=== PATIENT | female | born 1980 | race Caucasian/White ===

== ENCOUNTER 2019-05-18 19:52 | Inpatient (IN) ==
--- NOTE | 2019-05-18 20:22 | Labor Progress Brief Note ---
Date of Service May 18, 2019 Subjective Patient arrived to L&D after calling O/C with c/o copious clear LOF at home. She denied ctx, VB on the phone and had good FM. She continues to have no ctx, no VB and good FM here on L&D. Review of Systems All systems reviewed & are unremarkable except as noted in HPI & below Assessment & Plan (1) Insulin dependent gestational diabetes mellitus (GDM), antepartum: Patient last checked sugar earlier today at home, can't remember value. I note per records she has been poorly compliant with recommendations for having endocrine/dietary monitor her sugars and adjust her insulin, and has been declining much of the recommended testing. We discussed that in labor it is important to have maternal glucose under tight control and the patient and FOB are in agreement with following our antepartum insulin protocol. Present on Admission?: Yes (2) PROM (premature rupture of membranes): Patient with gross rupture for clear nitrazine-positive fluid. Exam of cervix is 3/50/-2 with palpable vertex. Explained to patient that without painful contractions, I would recommend beginning pitocin. After questions were answered for her and FOB, including that ACOG is the source of the recommendation to discourage expectant management once membranes are ruptured, they are in agreement with this. The patient states she had "major complications" with her second baby's epidural, and therefore went unmedicated with the third child, and expects to do so again with this delivery. I asked for more information and she states she had a dural puncture, spinal headache, and "they put air in my spine" during placement of blood patch. We discussed that I do not recommend IV pain medication due to the potential of infant respiratory depression, but that if she changes her mind about epidural she is welcome to request one; otherwise we will certainly support her through an unmedicated per her preference. PROM onset of labor timing: unspecified duration between rupture of membranes and onset of labor PROM gestational age: full term Qualified Code(s): O42.92 - Full-term premature rupture of membranes, unspecified as to length of time between rupture and onset of labor Present on Admission?: Yes Physical Exam Constitutional: WD/WN, vitals as above Eyes: PERRL, conjunctivae normal, anicteric sclerae ENMT: external ear and nose normal, oropharynx normal Neck: supple Respiratory: normal respiratory effort and able to speak in complete sentences; no respiratory distress Cardiovascular: Rate/Rhythm: regular rate and regular rhythm Gastrointestinal (Abdomen): Gravid / AGA, nontender Musculoskeletal: no cyanosis or clubbing, extremities motor strength 5/5 Skin: no rashes, warm and dry Psychiatric: A+Ox3, euthymic affect Genitourinary: Speculum/Bimanual Exam: no vaginal lesions, no vaginal bleeding and uterus nontender OB Exam Abdomen: + vertex and + estimated weight (7) Manual OB Exam: + cervical dilation 3 cm, + cervical effacement 50%, + station -2 and + amniotic fluid clear and nitrazine positive OB Exam Monitor Tracing: + external FHT monitor used, + external uterine monitor used (Q4m) and + category I Results & Data Vital Signs (Past 12 Hours) Vital Signs Pulse BP 05/18/19 20:01 91 H 129/71
[2019-05-18] MEDS ORDERED: SODIUM CHLORIDE 0.9% 1000ML 1,000 ML IV PRN (20:23)
[2019-05-18] MEDS ORDERED: OXYTOCIN 30 UNITS/500 ML BAG IV PRN ×2 (20:23)
[2019-05-18] MEDS ORDERED: INSULIN REGULAR 250 UNITS in SODIUM CHLORIDE 0.9% 247.5 ML IV PRN (20:23)
[2019-05-18] MEDS ORDERED: DEXTROSE 50% 50 ML SYRINGE IV PRN (20:23)
[2019-05-18] MEDS ORDERED: LACTATED RINGER'S 1,000 ML IV PRN (20:23)
[2019-05-18] MEDS ORDERED: DEXTROSE 5% 1,000 ML IV SCH (20:30)
[2019-05-18 21:14] LABS: Hematocrit (blood only) 34.7 % (37-47); Hemoglobin 11.7 g/dL (12.0-16.0); Mean Corpuscular Hemoglobin 31.5 pg (25-34); Mean Corpuscular Volume 93.5 fL (80-100); Mean Platelet Volume 11.3 fL (7.4-10.4); Platelet Count 253 K/uL (130-400); RDW Coefficient of Variation 14.3 % (11.5-14.5); RDW Standard Deviation 48.9 fL (36.4-46.3); Red Blood Count 3.71 M/uL (4.2-5.4); White Blood Count 7.99 K/uL (4.8-10.8)
[2019-05-18 21:20] LABS: Mean Corpuscular Hgb Conc 33.7 g/dL (32-36)
[2019-05-19] MEDS ORDERED: IBUPROFEN 600 MG TAB PO ONE (00:50)
--- NOTE | 2019-05-19 00:52 | Delivery Summary ---
Vaginal Delivery Summary Date of Service May 19, 2019 Vaginal Delivery Summary DIAGNOSES: 1. [place] intrauterine at 38w2d gestation. 2. PROM/IOL. 3. Group B Streptococcus Neg. 4. AMA 5. A2GDM 6. Rh Negative PROCEDURE: Spontaneous vaginal delivery. SURGEON: Gypsy Jacobson MD. CHARGE ENTRY CLERK: None. ESTIMATED BLOOD LOSS: 250 mL. COMPLICATIONS: None. PLACENTA: Spontaneous and intact with a 3-vessel cord. DISPOSITION: Stable to labor and delivery. DESCRIPTION: The patient pushed well and brought the head to in OA position. The infant's head was allowed to deliver with contraction force and no further active pushing, with the perineum protected during this time. There was a tight nuchal cord x1 that was reduced with some difficulty over the infant's head. The shoulders delivered with the next maternal pushing effort. The right shoulder was anterior. The body delivered without any difficulty, and the infant was placed on the maternal abdomen. It was vigorous and moving all extremities, and making respiratory efforts. The cord was doubly clamped by the MD and then cut by the FOB. The placenta delivered spontaneously and was noted to be intact and with a 3VC. The cervix, vagina and perineum were examined and were found to be without defect requiring repair. The fundus was firm and lochia minimal immediately after delivery.
[2019-05-19] MEDS ORDERED: BISACODYL 10 MG SUPP PR PRN (03:02)
[2019-05-19] MEDS ORDERED: LACTATED RINGER'S 1,000 ML IV SCH (03:02)
[2019-05-19] MEDS ORDERED: ACETAMINOPHEN 325 MG TAB PO PRN (03:02)
[2019-05-19] MEDS ORDERED: OXYCODONE/ACETAMINOPHEN 5mg/325mg TAB PO PRN (03:02)
[2019-05-19] MEDS ORDERED: SUPERCREAM 0.870% 15 GM JAR EXT PRN (03:02)
[2019-05-19] MEDS ORDERED: OXYTOCIN 30 UNITS/500 ML BAG IV PRN (03:02)
[2019-05-19] MEDS ORDERED: HYDROCORTISONE ACETATE 25 MG SUPP PR PRN (03:02)
[2019-05-19] MEDS ORDERED: BENZOCAINE 20% AER SPR 82.5 GM CAN EXT PRN (03:02)
[2019-05-19] MEDS: IBUPROFEN 600 MG TAB PO PRN ×2 (06:22→15:00)
[2019-05-19] MEDS: DOCUSATE SODIUM 100 MG CAP PO SCH ×2 (15:04→20:56)
[2019-05-19] MEDS: PRENATAL VITAMIN 1 TAB PO SCH (15:04)
[2019-05-20] MEDS: IBUPROFEN 600 MG TAB PO PRN ×2 (00:07→08:12)
[2019-05-20 06:41] LABS: Hematocrit (blood only) 33.3 % (37-47); Mean Corpuscular Hemoglobin 31.3 pg (25-34); Mean Corpuscular Volume 94.9 fL (80-100); Mean Platelet Volume 11.2 fL (7.4-10.4); Platelet Count 231 K/uL (130-400); RDW Coefficient of Variation 14.4 % (11.5-14.5); RDW Standard Deviation 49.7 fL (36.4-46.3); Red Blood Count 3.51 M/uL (4.2-5.4); White Blood Count 9.71 K/uL (4.8-10.8)
--- NOTE | 2019-05-20 06:52 | Obstetrical Progress Note ---
Date of Service <Lalo Vance MD - Last Filed: 05/20/19 06:55> May 20, 2019 Assessment & Plan <Lalo Vance MD - Last Filed: 05/20/19 06:55> (1) : 05/19 PPD#1 feels well, ambulating well, voiding well After discharge will have 6 week follow-up Subjective <Lalo Vance MD - Last Filed: 05/20/19 06:55> Ms Medina is a 39 y/o female ; PPD #1 following spontaneous vaginal delivery at 38+ weeks; doing well this morning; having no abdominal cramping/pain; voiding well, passing gas but no bowel movements at this point; tolerating meals overnight; and able to ambulate some; some persistent spotting with intermittent improvement this morning. Review of Systems Constitutional: denies fever; chills; sweats; headache Respiratory: denies shortness of breath, difficulty breathing Cardiac: denies chest pain; palpitations; chest pressure Breast: denies breast pain : denies dysuria Physical Exam <Lalo Vance MD - Last Filed: 05/20/19 06:55> General: alert; oriented; no acute distress Cardiac: RRR; no m/g/r Respiratory: CTAB a/p; no wheezes/rales/rhonchi; no increased work of breathing; symmetrical chest rise; no respiratory distress Abdomen: soft; NT/ND; bowel sounds positive Uterus: uterine fundus firm; palpable 2cm below umbilicus Lower extrem: no lower extremity edema or swelling; no deep calf pain; Rivka's sign negative b/l Results & Data <Lalo Vance MD - Last Filed: 05/20/19 06:55> Vital Signs (Past 12 Hours) Vital Signs Temp Pulse Resp BP Pulse Ox 05/19/19 23:50 37 C 80 16 114/75 98 05/19/19 19:30 36.8 C 80 18 113/69 98 Laboratory Results 05/20/19 05/19/19 Range/Units 06:17 06:15 WBC 9.71 (4.8-10.8) K/uL RBC 3.51 L (4.2-5.4) M/uL Hgb 11.0 L (12.0-16.0) g/dL Hct 33.3 L (37-47) % MCV 94.9 (80-100) fL MCH 31.3 (25-34) pg MCHC 33.0 (32-36) g/dL RDW Std Deviation 49.7 H (36.4-46.3) fL RDW Coeff of Stephan 14.4 (11.5-14.5) % Plt Count 231 (130-400) K/uL MPV 11.2 H (7.4-10.4) fL Blood Type Cancelled Antibody Screen Cancelled Screen Cancelled Medications Administered Current Inpatient Medications Acetaminophen (Tylenol) 650 mg PO Q6H PRN PRN Reason: Pain/LIM/Fever Stop: 06/18/19 03:01 Benzocaine (Dermoplast Pain Relieving [place]) 1 appln EXT PRN PRN PRN Reason: Perineal Discomfort Stop: 06/18/19 03:01 Bisacodyl (Dulcolax) 5 mg PO 2000 [facility] Stop: 05/20/19 20:01 Bisacodyl (Dulcolax) 10 mg SD DAILY PRN PRN Reason: No BM on 2nd post- day Stop: 06/18/19 03:01 Cocaine HCl (Supercream 0.870%) 1 gm EXT BID PRN PRN Reason: Hemorrhoidal Inflammation Stop: 06/02/19 03:01 Docusate Sodium (Colace) 100 mg PO DAILY@08,21 [facility] Stop: 06/18/19 07:59 Last Admin: 05/19/19 20:56 Dose: 100 mg Documented by: Hydrocortisone (Anusol Hc) 25 mg SD BID PRN PRN Reason: Hemorrhoidal Inflammation Stop: 06/18/19 03:01 Lactated Ringer's (Lr) 1,000 mls @ 125 mls/hr IV .Q8H [facility] Stop: 06/18/19 03:01 Oxytocin (Pitocin) 30 units in 500 mls @ 333.333 mls/hr IV .Q1H30M PRN; Protocol PRN Reason: Bleeding Control Stop: 06/18/19 03:01 Ibuprofen (Motrin) 600 mg PO Q4H PRN PRN Reason: Pain/LIM/Cramping/Fever Stop: 06/18/19 03:01 Last Admin: 05/20/19 00:07 Dose: 600 mg Documented by: Oxycodone/Acetaminophen (Percocet 5mg/325mg) 1 tab PO Q4H PRN PRN Reason: Pain not relieved by... Stop: 06/02/19 03:01 Prenat Multivit/International Relations Professor/Iron/Folic Ac ( Vitamin) 1 tab PO DAILY@08 [facility] Stop: 06/18/19 07:59 Last Admin: 05/19/19 15:04 Dose: 1 tab Documented by: <Allen Muniz Jr, MD, FACOG - Last Filed: 05/20/19 07:59> Co-Signing Physician Notes Resident Physician Supervision Note: I was present with Dr. Vance during the history and exam. I discussed the case with the resident and agree with the findings and plan as documented in the note. Any exceptions or clarifications are listed here: Patient ready for D/C. Instructions given, f/u in 6 weeks for PP check. Tried to discuss GDM instructions and recommendations. Patient states she is comfortable with her own management. Documented By: Allen Muniz Jr, MD, FACOG Resident Activity Tracking <Lalo Vance MD - Last Filed: 05/20/19 06:55> Resident Involvement: Resident Care Provided Care Provided: OB Delivery
[2019-05-20] MEDS: DOCUSATE SODIUM 100 MG CAP PO SCH (08:12)
[2019-05-20] MEDS: PRENATAL VITAMIN 1 TAB PO SCH (08:13)
[2019-05-20] MEDS ORDERED: BISACODYL 5 MG TABEC PO SCH (20:00)
== END 2019-05-20 14:32 | disposition home or self-care (01) | DRG 806 ==
LOC: OPB 19:52 → 4S1 19:56 → 4S2 05-19 03:10